=== PATIENT | female | born 1950 | race Caucasian/White ===

== ENCOUNTER → 2016-06-02 | Outpatient (CLI) | payer BC ==
[~2016-06-02] MED LIST: BACITRACIN15 G1 TP; CALTRATE-600 D600 MG PO; CRESTOR20 MG PO; EXCEDRIN DPS1 TAB PO; LEVOTHYROXINE125 MCG PO; NORCO 5-325 TA1 EACH PO; ROCALTROL DP0.25 MCG PO; ROSUVASTATIN CA20 MG PO; SENOKOT DPS8.6 MG PO; SENOKOT S1 TAB PO; SYNTHROID DP0.125 MG PO; TYLENOL DPS325 MG PO; TYLENOL EXTRA500 M1 PO; ZOLOFT DPS50 MG PO
== END | disposition home or self-care (01) ==
LOC: RAD.S 07:42
DX: E21.3 Hyperparathyroidism, unspecified (principal); E83.52 Hypercalcemia

== ENCOUNTER 2016-06-20 05:22 | Observation (INO) | payer BC ==
[~2016-06-20] VITALS: Ht 162.6 cm; Wt 116.0 kg
[2016-06-22] MEDS ORDERED: LEVOTHYROXINE125 MCG PO (10:46)
[2016-06-22] MEDS ORDERED: ROSUVASTATIN CA20 MG PO (10:46)
[2016-06-22] MEDS ORDERED: SENOKOT S1 TAB PO (10:46)
[2016-06-22] MEDS ORDERED: ZOLOFT DPS50 MG PO (10:46)
[2016-06-22] MEDS ORDERED: TYLENOL EXTRA500 M1 PO (10:47)
[2016-06-22] MEDS ORDERED: EXCEDRIN DPS1 TAB PO (10:47)
[2016-06-22] MEDS ORDERED: BACITRACIN15 G1 TP (10:48)
[2016-06-22] MEDS ORDERED: CALTRATE-600 D600 MG PO (10:48)
[2016-06-22] MEDS ORDERED: NORCO 5-325 TA1 EACH PO (10:48)
--- NOTE | 2016-06-23 10:14 | HP ---
ADMIT: 06/20/2016 RM/LOC: [facility] MR#: [id number] [address] [facility] [place], [place] [address] MARYAM CLOUD [address] [place] [address] Pre-OP History and Physical SEX: F AGE: 66 : 1950 DATE OF SERVICE: HISTORY OF PRESENT ILLNESS: Maryam is 66 years old. She is admitted at this time for neck exploration in treatment of suspected parathyroid adenoma. She was found to have hypercalcemia by Dr. Flores in [place]. Subsequent evaluation included parathyroid hormone level which is elevated at 117 and a sestamibi scan, which is positive in the left parathyroid region. Her symptoms include brain fog, abdominal distress, but does not have history of kidney stones or neuromuscular dysfunction. In 2011, she underwent double mastectomy in treatment of breast cancer. The elevated calcium at this time, however, appears related to hyperparathyroidism rather than problems related to previous breast cancer. Surgical treatment has been recommended. We discussed the procedure, the risks, and the postop course with the use of parathyroid surgery diagram. She is in good understanding and acceptance and admitted at this time for general anesthesia. MEDICATIONS: Medications prior: 1. Levothyroxine. 2. Rosuvastatin. 3. Sertraline. 4. Stool softener. 5. Equate Migraine. ALLERGIES: NONE. PAST MEDICAL HISTORY: In 2011, double mastectomy. In 2000, hysterectomy. She has had knee arthroscopies. REVIEW OF SYSTEMS: No known lower respiratory, cardiovascular, GI, or symptoms. Neurologic, history of migraines. SOCIAL HISTORY: She does not use alcohol, caffeine, or tobacco. FAMILY HISTORY: No known anesthetic complications or coagulopathies. There is no known family history of parathyroid dysfunction, but there is family history of thyroid abnormalities including both daughters and uncle and a brother, but no family history of thyroid cancer. PHYSICAL EXAMINATION: GENERAL: Maryam is 66 years old, 5 feet 3 inches. She is in no acute distress. ADMIT: 06/20/2016 RM/LOC: [facility] MR#: [id number] [address] [facility] [place], [place] [address] MARYAM CLOUD [address] [place] [address] Pre-OP History and Physical SEX: F AGE: 66 : 1950 HEENT: Pupils are equal. No proptosis. Ear canals, TMs, and middle ears clear. Nose, mouth, pharynx, and larynx good symmetry, structure, and function. NECK: No palpable masses. No adenopathy, thyromegaly, nodules, or asymmetry. LUNGS: Clear. HEART: Rhythm regular. EXTREMITIES: No edema or cyanosis. IMPRESSION: Hypercalcemia, appears primary due to parathyroid adenoma based on elevated PTH and abnormal sestamibi scan. PLAN: Neck exploration with removal of parathyroid adenoma. Jono Cantu MD/ damaris JOB #: [id number] CC: Jono Cantu, Attending Physician UNKNOWN, Family Physician
--- NOTE | 2016-06-29 07:58 | OR ---
ADMIT: 06/20/2016 RM/LOC: 6[address] [facility] MR#: [id number] [facility]#: [id number] [address] [address] AARONBrandenDAIANA StewartDavid De La Cruz [address] [place] [address] Operative/Delivery Room Report SEX: F AGE: 66 : 1950 SURGERY DATE: 06/20/2016 SURGEON: Jono Cantu MD PREOPERATIVE DIAGNOSIS: Hypercalcemia, appears primary due to parathyroid adenoma, left neck. POSTOPERATIVE DIAGNOSIS: Hypercalcemia due to parathyroid hyperplasia. OPERATION: Neck exploration with removal of enlarged parathyroid glands including left superior, right superior, and right inferior with reimplantation portion of right superior parathyroid gland within right sternomastoid muscle. ANESTHESIA: General oral endotracheal. BLOOD LOSS: 30 mL. COMPLICATIONS: None. DRAINS: Wai-Cooper 7 mm. DESCRIPTION OF PROCEDURE: With the patient in supine position under general oral endotracheal anesthesia, her neck was extended slightly. The anterior neck was prepped with ChloraPrep, allowed 3 minutes to dry. The patient was draped sterilely. An incision was made following the natural skin crease low in the neck through skin, subcutaneous tissue, and platysma muscle. The skin flaps were elevated superiorly and inferiorly exposing the strap muscles. These were in the midline, which exposed the thyroid isthmus. Her thyroid gland was markedly atrophic and fibrotic. The small gland was identified and delineated by blunt dissection. The left parathyroid regions were evaluated initially. The small sclerotic lobe of the thyroid was grasped with the [place] and retracted medially. Blunt dissection was used to delineate the posterior capsule of the gland. The left inferior parathyroid region was evaluated initially and no identifiable abnormalities pertaining to enlarged or abnormal-appearing parathyroid identified. The recurrent laryngeal nerve was identified, its identity and function confirmed intact by NIM-2 stimulation and approximately 1 cm superior to the level of the recurrent laryngeal nerve insertion was identified in parathyroid gland. The left superior gland was enlarged approximately 4-5 times normal. It was from the surrounding tissues with blunt dissection and it was removed from the field and sent for histologic examination by frozen section, during which time, the right neck was then examined. The right thyroid lobe also was small and fibrotic. It was rotated medially and the tissues bearing the inferior and superior parathyroid glands were dissected with identity of these two glands both of which were enlarged, the inferior approximately 2 to 3 times normal and the superior large at 4-5 times normal. Again, the recurrent laryngeal nerve was identified, its identity and function confirmed intact both during the procedure and following the dissection. The right ADMIT: 06/20/2016 RM/LOC: 6[address] [facility] MR#: [id number] [address] [address] [place] [address] Operative/Delivery Room Report SEX: F AGE: 66 : 1950 inferior parathyroid gland was sent for histologic examination. It, along with the left superior, were found to represent parathyroid tissue, enlarged, and fatty consistent with hyperplasia or possible adenoma. The left inferior parathyroid region was then again explored including expiration to level 6. There were no identifiable parathyroid glands present to distinctly identify the left inferior parathyroid gland. I felt this was likely a hypoplastic gland due to the over function of the other three. No other tissues were removed during the dissection. The findings I felt were most consistent with parathyroid hyperplasia because I could not distinctly identify the left inferior, and in light of her previous breast cancer surgery and subsequent treatments, I elected to reimplant a portion of the right superior parathyroid gland. 1/3rd of the gland was from the main specimen, morselized, and implanted within the medial aspect of the right sternomastoid muscle. The site of implantation was tagged with two interrupted simple 2-0 silk sutures. The wound was irrigated with saline. Hemostasis was assured and blood loss through the procedure approximately 30 mL. A 7 mm Wai-Cooper drain was placed, brought out the left side of strap muscles and incision, and wound was closed in layers with 3-0 chromic catgut to the midline strap muscles and to the platysmal layer. The skin was closed with a running horizontal mattress suture of 5-0 Prolene and the drain was sutured to the skin with silk. She tolerated this very well. She emerged from general anesthesia while in the operating room, was extubated in the operating room, and transferred to the recovery room in good condition. She experienced no stridor nor airway distress. Jono Cantu MD/ damaris JOB #: [id number] CC: Jono Cantu MD, Attending Physician Sergio Milian MD, Family Physician Dante Rodriguez MD
== END 2016-06-21 11:45 | disposition home or self-care (01) ==
LOC: WOR 05:22 → 6PED 05:22 → WOR 05:22 → 6PED 08:53
PROVIDERS: ADMIT Otolaryngology
PROC: 0GBM0ZZ Excision of Left Superior Parathyroid Gland, Open Approach (ICD-10-PCS; principal; 2016-06-20)
PROC: 0GBP0ZZ Excision of Left Inferior Parathyroid Gland, Open Approach (ICD-10-PCS; principal; 2016-06-20)
DX: E21.0 Primary hyperparathyroidism (principal); E66.9 Obesity, unspecified; Z98.890 Other specified postprocedural states; Z90.710 Acquired absence of both cervix and uterus; Z79.899 Other long term (current) drug therapy

== ENCOUNTER 2016-06-24 11:17 | Inpatient (IN) | payer BC, MEDICARE ==
[~2016-06-24] VITALS: Ht 162.6 cm; Wt 115.1 kg
[~2016-06-24 11:17] MED LIST changes: -CRESTOR20 MG PO; -ROCALTROL DP0.25 MCG PO; -SENOKOT DPS8.6 MG PO; -SYNTHROID DP0.125 MG PO; -TYLENOL DPS325 MG PO
[2016-06-27] MEDS ORDERED: ROCALTROL DP0.25 MCG PO (18:45)
[2016-06-27] MEDS ORDERED: CALTRATE-600 D600 MG PO (18:45)
[2016-06-27] MEDS ORDERED: SYNTHROID DP0.125 MG PO (18:46)
[2016-06-27] MEDS ORDERED: CRESTOR20 MG PO (18:46)
[2016-06-27] MEDS ORDERED: ZOLOFT DPS50 MG PO (18:46)
[2016-06-27] MEDS ORDERED: SENOKOT DPS8.6 MG PO (18:46)
[2016-06-27] MEDS ORDERED: TYLENOL DPS325 MG PO (18:47)
[2016-06-27] MEDS ORDERED: BACITRACIN15 G1 TP (18:47)
--- NOTE | 2016-06-29 07:58 | HP ---
ADMIT: 06/24/2016 RM/LOC: 6[address] [facility] MR#: [id number] [facility]#: [id number] [address] [facility] [address] [place] [id number] ALIN OLSEN [address] [place] [address] History and Physical SEX: F AGE: 66 : 1950 DATE OF SERVICE: HISTORY OF PRESENT ILLNESS: Ms. Olsen year old is 66 years old. She underwent parathyroid surgery on 06/20/2016, at which time, she was found to have parathyroid hyperplasia involving the superior parathyroids bilaterally and the right inferior parathyroid. The left inferior parathyroid was not hyperplastic. Surgical exploration did not distinctly identify enlarged left inferior parathyroid. Tissue from the right superior parathyroid was reimplanted into the right sternomastoid muscle and postoperatively, she did well. On the day of admission, experienced no hypocalcemic symptoms. Her calcium decreased to a level of 9.4 on the afternoon of surgery, was 8.0 on the morning following surgery, and because of the change from the elevated level, we monitored her until 06/22/2016, at which time, she continued to have a serum calcium of 8.0 without hypocalcemic symptoms. She was dismissed in good condition. Discharge medication included Caltrate 600 mg t.i.d. On 06/23/2016, her serum calcium had decreased to 6.5, but she still was having no symptoms. When monitored at home, she developed numbness and tingling and only muscle cramping, and I recommended she be readmitted for intravenous calcium supplementation. At time of admission on 06/24/2016, her serum calcium was low at 5.9, and ionized calcium was low at 0.77, and her PTH level low at 3.9. Intravenous fluids and intravenous calcium gluconate were instituted at time of admission. MEDICATIONS: Prior to admission: 1. Caltrate 600 mg t.i.d. 2. Levothyroxine 125 mcg daily. 3. Sertraline 50 mg one tablet daily. ALLERGIES: SHE HAS NO KNOWN MEDICINE ALLERGIES. PAST MEDICAL HISTORY: Includes double mastectomy in treatment of breast cancer 2011, hysterectomy 2000. She has had colonoscopies, hemorrhoidectomy, and bilateral knee arthroscopy, and neck exploration with parathyroidectomy on 06/20/2016. FAMILY HISTORY: Please refer to H and P of 06/20/2016. SOCIAL HISTORY: Please refer to H and P of 06/20/2016. REVIEW OF SYSTEMS: Please refer to H and P of 06/20/2016. PHYSICAL EXAMINATION: GENERAL: Ms. Olsen is in no acute distress. She is cooperative and alert. She feels tingly around her lips and fingers. ADMIT: 06/24/2016 RM/LOC: 6[address] [facility] MR#: [id number] [address] [address] [place] [address] History and Physical SEX: F AGE: 66 : 1950 Chvostek sign is positive. Her incision is healing well. There is no redness or swelling. She has good voice, good airway. No stridor. LUNGS: Clear. HEART: Rhythm regular. EXTREMITIES: No edema. IMPRESSION: 1. Post parathyroid surgery hypocalcemia with associated symptoms of numbness, tingling, and muscle cramping, 4 days post neck exploration with parathyroid surgery for parathyroid hyperplasia. 2. History of breast cancer, post double mastectomy 2011. 3. Hypothyroidism, presently on thyroid hormone replacement. Jono Cantu MD/ damaris JOB #: [id number] CC: Jono Cantu, Attending Physician NO FAMILY PHYSICIAN, Family Physician
--- NOTE | 2016-07-25 09:02 | DS ---
ADMIT: 06/24/2016 RM/LOC: 622 [facility] MR#: [id number] [facility]#: [id number] 26[address] [facility] [address] [place] [id number] ALIN OLSEN [address] [place] [address] Discharge Summary SEX: F AGE: 66 : 1950 ADMISSION DATE: 06/24/2016 DISCHARGE DATE: 06/27/2016 Ms. Olsen is 66 years old. She is readmitted at this time with hypocalcemia. She is four days post parathyroidectomy. She underwent neck exploration on 06/20/2016 and found to have parathyroid hyperplasia. The left superior and inferior parathyroid glands were large and removed. The right superior was large and removed but a portion was reimplanted into the sternomastoid muscle and the right inferior parathyroid gland appeared hypoplastic. She was dismissed with normal calcium level but readmitted at this time with a low serum calcium of 5.9. She had symptoms of tingling, numbness and muscle cramps. She had a positive Chvostek's sign. She was treated with intravenous fluids, intravenous calcium gluconate and supplemented with oral Calcitriol and oral calcium. During her hospital stay, her calcium was gradually improved as did her symptoms of Chvostek's sign. By 06/27/2016, her calcium had improved to an ionized 1.04 and total 8.3. PTH level at the time of discharge was 6.2. She was dismissed with oral Rocaltrol to be taken 0.25 mcg t.i.d. and Caltrate 1200 mg q.4 hours while awake. She will follow up in [place] with Dr. Rodriguez for serum calcium on 06/28/2016 and will continue to be monitored thereafter dependent on blood levels and symptoms. FINAL DIAGNOSIS: Parathyroid hyperplasia with postoperative hypocalcemia. PROGNOSIS: Good. Jono Cantu MD/ kalyan JOB #: [id number] CC: Jono Cantu MD, Attending Physician FAMILY PHYSICIAN, Family Physician
== END 2016-06-27 09:59 | disposition home or self-care (01) | DRG 641 ==
LOC: 6PED 11:17
PROVIDERS: ADMIT Otolaryngology
DX: E83.51 Hypocalcemia (principal); E03.9 Hypothyroidism, unspecified; Z98.890 Other specified postprocedural states; Z85.3 Personal history of malignant neoplasm of breast; Z90.13 Acquired absence of bilateral breasts and nipples